=== PATIENT | female | born 1990 | race Caucasian/White ===

== ENCOUNTER 2024-11-10 08:26 | Outpatient (OUT) | payer OTHER, SELFPAY ==
--- OUTSIDE RECORDS SUMMARY | 2024-10-31 09:34 | XMS_ITS | Encounter Summary ---
Author Organization [facility] Address [address] [place] [address] Phone Care Team Providers Care Filling And Stapling Machine Operator Name Role Phone Davidson Jay MD Primary Care Provider [phone] Reason for Referral * CV Imaging (Routine) - Authorized Specialty Diagnoses / Procedures Referred By Christine sosa Referred To Contact Cardiology Diagnoses History of palpitations Essential (primary) hypertension Chest pain, unspecified type Dizziness SOB (shortness of breath) on exertion Procedures Transthoracic Echo Complete CT ECHO TTHRC R-T 2D W/WOM-MODE COMPL SPEC&COLR D Eryn Plascencia MD [address] [place] [address] Phone: tel: fax: Referral ID Status Reason Start Date Expiration Date Visits Requested Visits Authorized [id number] Authorized Perform Procedure 08/10/2024 08/10/2025 1 1 Reason for Visit * CV Imaging (Routine) - Authorized Specialty Diagnoses / Procedures Referred By Christine sosa Referred To Contact Cardiology Diagnoses History of palpitations Essential (primary) hypertension Chest pain, unspecified type Dizziness SOB (shortness of breath) on exertion Procedures Transthoracic Echo Complete CT ECHO TTHRC R-T 2D W/WOM-MODE COMPL SPEC&COLR D Eryn Plascencia MD [address] [place] [address] Phone: tel: fax: Referral ID Status Reason Start Date Expiration Date Visits Requested Visits Authorized [id number] Authorized Perform Procedure 08/10/2024 08/10/2025 1 1 Encounter Details Date Type Department Care Team (Latest Contact Info) Description 10/31/2024 9:34 AM EDT - 10/31/2024 11:59 PM EDT Hospital Encounter [facility] Sarah Mcallister [facility] [place] [address] History of palpitations; Essential (primary) hypertension; Chest pain, unspecified type; Dizziness; SOB (shortness of breath) on exertion Discharge Disposition: Home Social History Tobacco Use Types Packs/Day Years Used Date Smoking Tobacco: Never Smokeless Tobacco: Never Alcohol Use Standard Drinks/Week Comments Yes 0 (1 standard drink = 0.6 oz pur e alcohol) rarely Comments Unknown Sex and Gender Information Value Date Recorded Sex Assigned at Not on file Legal Sex Female 2:33 PM EDT Gender Identity Not on file Sexual Orientation Not on file documented as of this encounter Last Filed Vital Signs Vital Sign Reading Time Taken Comments Blood Pressure 134/82 10/31/2024 9:43 AM EDT Pulse - - Temperature - - Respiratory Rate - - Oxygen Saturation - - Inhaled Oxygen Concentration - - Weight 71.7 kg (158 lb) 10/31/2024 9:43 AM EDT Height 162.6 cm (5' 4 ) 10/31/2024 9:43 AM EDT Body Mass Index 27.12 10/31/2024 9:43 AM EDT documented in this encounter Functional Status * BP Answer Date of Assessment Author 134/82 10/31/2024 9:43 AM EDT Chirag Salcedo, RVT * Communicable Disease Screening Question Answer Date of Assessment Author Do you have any of the follo wing new or worsening symptoms? None of these 10/31/2024 9:34 AM EDT Brianna Ritter documented as of this encounter Medications at Time of Discharge furosemide (Lasix) 20 mg tablet Take 1 tablet (20 mg) by mouth once daily. 07/31/2024 potassium gluconate 600 mg (99 mg) tablet Take 1 tablet by mouth once daily. documented as of this encounter Plan of Treatment Upcoming Encounters Date Type Department Care Team (Late st Contact Info) Description 11/16/2024 9:15 AM EDT Office Visit [facility] [place] [address] Eryn Plascencia MD [address] [facility] [address] [place], [place] [id number] documented as of this encounter Procedures Procedure Name Priority Date/Time Associated Diagnosis Comments TRANSTHORACIC ECHO (TTE) COMPLETE Routine 10/31/2024 10:24 AM EDT History of palpitations Essential (primary) hypertension Chest pain, unspecified type Dizziness SOB (shortness of breath) on exertion documented in this encounter Results * TRANSTHORACIC ECHO (TTE) COMPLETE (10/31/2024 10:24 AM EDT) AV mn grad 2 mmHg SYNGO AV pk shannon 0.97 m/s SYNGO LV Biplane EF 61 % SYNGO LVOT diam 2.22 cm SYNGO Tricuspid annular plane systolic excursion 2.3 cm SYNGO LA vol index A/L 17.0 ml/m2 SYNGO LV EF 65 % SYNGO RV free wall pk S' 14.39 cm/s SYNGO LVIDd 4.39 cm SYNGO AV pk grad 4 mmHg SYNGO LV A4C EF 38.6 SYNGO 10/31/2024 9:44 AM EDT Impressions SYNGO - 11/01/2024 10:28 AM EDT CONCLUSIONS: 1. Left ventricular ejection fraction is normal by visual estimate at 65%. 2. There is no evidence of left ventricular hypertrophy. 3. Normal chamber sizes. 4. No significant valvular heart disease. 5. There is normal right ventricular global systolic function. 6. No comparison study available. Narrative SYNGO - 11/01/2024 10:28 AM EDT [facility] [address] [place] [address], [address], [place], [place] [address] TRANSTHORACIC ECHOCARDIOGRAM REPORT Patient Name: JUAN ANTONIO GOMEZ Reading Physician: [id number] Eryn Plascencia MD, [facility] Study Date: 10/31/2024 Ordering Provider: [id number] ERYN PLASCENCIA MRN/PID: [id number] Fellow: Nurse: Date of /Age: 1201/09/1990 Pony Edger: Kari wolfe RDCS, RVT Gender Assigned at F Additional Staff: : Height: 162.56 cm Admit Date: Weight: 71.67 kg Admission Status: Outpatient BSA / BMI: 1.77 m2 / 27.12 Department Location: [facility] Heart kg/m2 [place] Blood Pressure: 134 /82 mmHg Study Type: TRANSTHORACIC ECHO (TTE) COMPLETE Diagnosis/ICD: Personal history of other specified condition-Z87.898; Essential (primary) hypertension-I10; Chest pain, unspecified-R07.9; Dizziness and giddiness-R42; Shortness of breath-R06.02 Indication: Edeema, Family History of CAD, Thoracic Outlet Syndrome, ADD/ADHD CPT Codes: Echo Complete w Full [id number] Study Detail: The following Echo studies were performed: 2D, M-Mode, Doppler and color flow. Image quality for this study is good. PHYSICIAN INTERPRETATION: Left Ventricle: Left ventricular ejection fraction is normal by visual estimate at 65%. There are no regional wall motion abnormalities. The left ventricular cavity size is normal. There is normal septal and normal posterior left ventricular wall thickness. There is no evidence of left ventricular hypertrophy. Spectral Doppler shows a normal pattern of left ventricular diastolic filling. Left Atrium: The left atrial size is normal. Right Ventricle: The right ventricle is normal in size. There is normal right ventricular global systolic function. Right Atrium: The right atrial size is normal. Aortic Valve: The aortic valve is trileaflet. The peak and mean gradients are 4 mmHg and 2 mmHg, respectively,. There is no evidence of aortic valve regurgitation. Mitral Valve: The mitral valve is normal in structure. There is no evidence of mitral valve regurgitation. Tricuspid Valve: The tricuspid valve is structurally normal. There is trace tricuspid regurgitation. Pulmonic Valve: The pulmonic valve is structurally normal. There is no indication of pulmonic valve regurgitation. Pericardium: No pericardial effusion noted. Aorta: The aortic root is normal. Additional Comments: No comparison study available. Normal chamber sizes. No significant valvular heart disease. CONCLUSIONS: 1. Left ventricular ejection fraction is normal by visual estimate at 65%. 2. There is no evidence of left ventricular hypertrophy. 3. Normal chamber sizes. 4. No significant valvular heart disease. 5. There is normal right ventricular global systolic function. 6. No comparison study available. QUANTITATIVE DATA SUMMARY: 2D MEASUREMENTS: Normal Ranges: Ao Root d: 2.80 cm (2.0-3.7cm) LAs: 2.77 cm (2.7-4.0cm) RVIDd: 2.26 cm (0.9-3.6cm) IVSd: 0.77 cm (0.6-1.1cm) LVPWd: 0.64 cm (0.6-1.1cm) LVIDd: 4.39 cm (3.9-5.9cm) LVIDs: 2.97 cm LV Mass Index: 52.3 g/m2 LVEDV Index: 37.18 ml/m2 LV % FS 32.5 % LEFT ATRIUM: Normal Ranges: LA Vol A4C: 24.3 ml (22+/-6mL/m2) LA Vol A2C: 33.6 ml LA Vol BP: 30.0 ml LA Vol Index A4C: 13.7ml/m2 LA Vol Index A2C: 19.0 ml/m2 LA Vol Index BP: 17.0 ml/m2 LA Vol A4C: 22.6 ml LA Vol A2C: 31.4 ml LA Vol Index BSA: 15.2 ml/m2 LV SYSTOLIC FUNCTION: Normal Ranges: EF-A4C View: 39 % (>=55%) EF-A2C View: 75 % EF-Biplane: 61 % EF-Visual: 65 % LV EF Reported: 65 % LV DIASTOLIC FUNCTION: Normal Ranges: MV e' 0.123 m/s (>8.0) MV lateral e' 0.15 m/s MV medial e' 0.10 m/s AORTIC VALVE: Normal Ranges: AoV Vmax: 0.97 m/s (<=1.7m/s) AoV Peak P.7 mmHg (<20mmHg) AoV Mean P.2 mmHg (1.7-11.5mmHg) AoV VTI: 20.49 cm (18-25cm) LVOT Diameter: 2.22 cm (1.8-2.4cm) AORTIC INSUFFICIENCY: AI Vmax: 3.41 m/s AI Half-time: 347 msec AI Decel Time: 1197 msec AI Decel Rate: 285.22 cm/s2 RIGHT VENTRICLE: RV Basal 2.67 cm RV Mid 1.90 cm RV Major 5.9 cm TAPSE: 22.7 mm RV s' 0.14 m/s TRICUSPID VALVE/RVSP: Normal Ranges: Est. RA Pressure: 3 mmHg IVC Diam: 1.79 cm PULMONIC VALVE: Normal Ranges: RVOT Vmax: 0.74 m/s (0.6-0.9m/s) [id number] Eryn Plascencia MD, [facility] Electronically signed on 11/01/2024 at 10:28:49 AM Final Procedure Note Eryn Plascencia MD - 11/01/[address], [address], [place] [address] TRANSTHORACIC ECHOCARDIOGRAM REPORT Patient Name: JUAN ANTONIO GOMEZ Jovanny Physician: Elayne Cordon [facility] Study Date: 10/31/2024 Ordering Provider: Shoshana PLASCENCIA MRN/PID: [id number] Fellow: Nurse: Date of /Age: 1201/09/1990 Pony Edger: Ministerio wolfe RDISMAEL, RVT Gender Assigned at F Additional Staff: : Height: 162.56 cm Admit Date: Weight: 71.67 kg Admission Status: Outpatient BSA / BMI: 1.77 m2 / 27.12 Department Location: [facility] kg/m2 [place] Blood Pressure: 134 /82 mmHg Study Type: TRANSTHORACIC ECHO (TTE) COMPLETE Diagnosis/ICD: Personal history of other specified condition-Z87.898;Essential (primary) hypertension-I10; Chest pain,unspecified-R07.9; Dizziness and giddiness-R42; Shortness of breath-R06.02 Indication: Edeema, Family History of CAD, Thoracic Outlet Syndrome,ADD/ADHD CPT Codes: Echo Complete w Full Doppler-[id number] Study Detail: The following Echo studies were performed: 2D, M-Mode,Doppler and color flow. Image quality for this study is good. PHYSICIAN INTERPRETATION: Left Ventricle: Left ventricular ejection fraction is normal by visualestimate at 65%. There are no regional wall motion abnormalities. The leftventricular cavity size is normal. There is normal septal and normalposterior left ventricular wall thickness. There is no evidence of leftventricular hypertrophy. Spectral Doppler shows a normal pattern of leftventricular diastolic filling. Left Atrium: The left atrial size is normal. Right Ventricle: The right ventricle is normal in size. There is normalright ventricular global systolic function. Right Atrium: The right atrial size is normal. Aortic Valve: The aortic valve is trileaflet. The peak and mean gradientsare 4 mmHg and 2 mmHg, respectively,. There is no evidence of aortic valveregurgitation. Mitral Valve: The mitral valve is normal in structure. There is noevidence of mitral valve regurgitation. Tricuspid Valve: The tricuspid valve is structurally normal. There istrace tricuspid regurgitation. Pulmonic Valve: The pulmonic valve is structurally normal. There is noindication of pulmonic valve regurgitation. Pericardium: No pericardial effusion noted. Aorta: The aortic root is normal. Additional Comments: No comparison study available. Normal chamber sizes.No significant valvular heart disease. CONCLUSIONS: 1. Left ventricular ejection fraction is normal by visual estimate at65%. 2. There is no evidence of left ventricular hypertrophy. 3. Normal chamber sizes. 4. No significant valvular heart disease. 5. There is normal right ventricular global systolic function. 6. No comparison study available. QUANTITATIVE DATA SUMMARY: 2D MEASUREMENTS: Normal Ranges: Ao Root d: 2.80 cm (2.0-3.7cm) LAs: 2.77 cm (2.7-4.0cm) RVIDd: 2.26 cm (0.9-3.6cm) IVSd: 0.77 cm (0.6-1.1cm) LVPWd: 0.64 cm (0.6-1.1cm) LVIDd: 4.39 cm (3.9-5.9cm) LVIDs: 2.97 cm LV Mass Index: 52.3 g/m2 LVEDV Index: 37.18 ml/m2 LV % FS 32.5 % LEFT ATRIUM: Normal Ranges: LA Vol A4C: 24.3 ml (22+/-6mL/m2) LA Vol A2C: 33.6 ml LA Vol BP: 30.0 ml LA Vol Index A4C: 13.7ml/m2 LA Vol Index A2C: 19.0 ml/m2 LA Vol Index BP: 17.0 ml/m2 LA Vol A4C: 22.6 ml LA Vol A2C: 31.4 ml LA Vol Index BSA: 15.2 ml/m2 LV SYSTOLIC FUNCTION: Normal Ranges: EF-A4C View: 39 % (>=55%) EF-A2C View: 75 % EF-Biplane: 61 % EF-Visual: 65 % LV EF Reported: 65 % LV DIASTOLIC FUNCTION: Normal Ranges: MV e' 0.123 m/s (>8.0) MV lateral e' 0.15 m/s MV medial e' 0.10 m/s AORTIC VALVE: Normal Ranges: AoV Vmax: 0.97 m/s (<=1.7m/s) AoV Peak P.7 mmHg (<20mmHg) AoV Mean P.2 mmHg (1.7-11.5mmHg) AoV VTI: 20.49 cm (18-25cm) LVOT Diameter: 2.22 cm (1.8-2.4cm) AORTIC INSUFFICIENCY: AI Vmax: 3.41 m/s AI Half-time: 347 msec AI Decel Time: 1197 msec AI Decel Rate: 285.22 cm/s2 RIGHT VENTRICLE: RV Basal 2.67 cm RV Mid 1.90 cm RV Major 5.9 cm TAPSE: 22.7 mm RV s' 0.14 m/s TRICUSPID VALVE/RVSP: Normal Ranges: Est. RA Pressure: 3 mmHg IVC Diam: 1.79 cm PULMONIC VALVE: Normal Ranges: RVOT Vmax: 0.74 m/s (0.6-0.9m/s) [id number] Eryn Plascencia MD, [facility] Electronically signed on 11/01/2024 at 10:28:49 AM Final IMPRESSION: CONCLUSIONS: 1. Left ventricular ejection fraction is normal by visual estimate at65%. 2. There is no evidence of left ventricular hypertrophy. 3. Normal chamber sizes. 4. No significant valvular heart disease. 5. There is normal right ventricular global systolic function. 6. No comparison study available. us Eryn Plascencia MD CV ECHO PROCEDURES Final Result SYNGO documented in this encounter Visit Diagnoses Diagnosis History of palpitations Essential (primary) hypertension Unspecified essential hypertension Chest pain, unspecified type Dizziness Dizziness and giddiness SOB (shortness of breath) on exertion Shortness of breath documented in this encounter Additional Health Concerns Assessment Noted Time A fall risk assessment has been complete d for the patient 08/10/2024 11:03 AM EDT documented as of this encounter Care Teams Filling And Stapling Machine Operator Relationship Specialty Start Date End Date Davidson Jay MD [address] [facility] [address] [place] [address] PCP - General Family Medicine 08/02/24 documented as of this encounter
--- OUTSIDE RECORDS SUMMARY | 2024-11-10 08:33 | XMS_ITS | Encounter Summary ---
Author Organization [facility] Address [address] [facility] [place] [address] Care Team Providers Care Civil Service Worker Name Role Phone Davidson Jay MD Primary Care Provider [phone] Encounter Details Date Type Department Care Team (Late Contact Info) Description 09/19/2024 Abstract [facility] Escobedo [address] [facility] 110 [place] [phone] Davidson Jay MD [address] [facility] [address] [place] [address] Social History Tobacco Use Types Packs/Day Years Used Date Smoking Tobacco: Never Smokeless Tobacco: Never Alcohol Use Standard Drinks/Week Comments Not Currently 0 (1 standard drink = 0.6 oz pure alcohol) Caffeine intake : 1-2 cups per day coffee PHQ-2 Answer Date Recorded Patient Health Questionnaire-2 Score 2 08/14/2024 Comments Unknown Sex and Gender Information Value Date Recorded Sex Assigned at Female 10/05/2023 8:53 AM EDT Legal Sex Female 8:27 PM EDT Gender Identity Female 10/05/2023 8:53 AM EDT Sexual Orientation Bisexual 10/05/2023 8: 53 AM EDT documented as of this encounter Plan of Treatment Upcoming Encounters Date Type Department Care Team (Late st Contact Info) Description 12/18/2024 11:00 AM EST Office Visit [facility] Escobedo [address] [facility] [address] [place] [phone] Davidson Jay MD [address] [facility] [address] [place] [address] documented as of this encounter Visit Diagnoses Not on filedocumented in this encounter Care Teams Civil Service Worker Relationship Specialty Start Date End Date Davidson Jay MD [address] [place] [address] PCP - General Family Medicine 06/16/22 documented as of this encounter
--- OUTSIDE RECORDS SUMMARY | 2024-11-10 08:33 | XMS_ITS | Clinical Summary ---
Author Organization [employer] Address [id number] [address] [place] [address] Care Team Providers Care Health Spa Manager Name Role Phone Davidson Jay MD Primary Care Provider [phone] Allergies Active Allergy Reactions Criticality Noted Date Comments Magnesium Sulfate 01/05/2018 Medications citalopram (CeleXA) 20 mg tablet Take 1 tablet by mouth daily. 2 04/08/2018 Active Active Problems Problem Noted Date Diagnosed Date Heart palpitations Lightheadedness Chest pain Dyspnea on exertion SOB (shortness of breath) Back pain Restless sleeper Preeclampsia Family History Medical History Relation Name Comments Heart disease Maternal Grandfather Hypertension Maternal Grandmother Stroke Maternal Grandmother COPD Mother Hypertension Paternal Grandfather Lung cancer Paternal Grandfather Hypertension Paternal Grandmother Relation Name Status Comments Maternal Grandfather Maternal Grandmother Mother Paternal Grandfather Paternal Grandmother Social History Tobacco Use Types Packs/Day Years Used Date Smoking Tobacco: Never Smokeless Tobacco: Never Tobacco Cessation:Counseling Given: Yes Alcohol Use Standard Drinks/Week Comments Yes 0 (1 standard drink = 0.6 oz pur e alcohol) occasional Childcare Answer Date Recorded Childcare Unknown 07/21/2018 Employment Answer Date Recorded Employment Unknown 07/21/2018 Purpose - Life Answer Date Recorded Purpose and direction in life Unknown Comments Unknown Sex and Gender Information Value Date Recorded Sex Assigned at Not on file Legal Sex Female 11:49 AM EST Gender Identity Not on file Sexual Orientation Not on file Last Filed Vital Signs Vital Sign Reading Time Taken Comments Blood Pressure 117/75 09/15/2018 9:45 AM EDT Pulse 101 09/15/2018 9:45 AM EDT Temperature 36.3 C (97.4 F) 01/13/2018 2:38 PM EST Respiratory Rate 14 01/13/2018 2:38 PM EST Oxygen Saturation - - Inhaled Oxygen Concentration - - Weight 65.8 kg (145 lb) 09/15/2018 9:45 AM EDT Height 162.6 cm (5' 4 ) 09/15/2018 9:45 AM EDT Body Mass Index 24.89 09/15/2018 9:45 AM EDT Plan of Treatment Health Maintenance Due Date Last Done Comments Depression Screening 2003 Tobacco Screening 2003 Adult BMI Screening 2009 DTaP,Tdap and Td Vaccines (1 - Tdap) 2010 Pap Smear 01/10/2012 Influenza Vaccine 10/09/2024 01/12/2019 Medical Devices Not on file Insurance [employer] Care Teams Health Spa Manager Relationship Specialty Start Date End Date Dvaidson Jay MD [address] [place] [id number] PCP - General Family Medicine 01/06/18
--- OUTSIDE RECORDS SUMMARY | 2024-11-10 08:33 | XMS_ITS | Encounter Summary ---
Author Organization [facility] Address [address] [facility] [place] [address] Care Team Providers Care Customer Trainer Name Role Phone Davidson Jay MD Primary Care Provider [phone] Encounter Details Date Type Department Care Team (Late Contact Info) Description 09/19/2024 Abstract [facility] Escobedo [address] [facility] [address] [place] [phone] Davidson Jay MD [address] [facility] [address] [place] [address] Social History Tobacco Use Types Packs/Day Years [...] Office Visit [facility] K[facility] Escobedo [address] [facility] [address] [place] [phone] Davidson Jay MD [address] [facility] [address] [place] [address] documented as of this encounter Visit Diagnoses Not on filedocumented in this encounter Care Teams Customer Trainer Relationship Specialty Start Date End Date Davidson Jay MD 112 [place] [address] PCP - General Family Medicine 06/16/22 documented as of this encounter
--- OUTSIDE RECORDS SUMMARY | 2024-11-10 08:33 | XMS_ITS | Clinical Summary ---
Author Organization [facility] Healthcare Address [address] [place] [address] Care Team Providers Care Oil Program Compliance Specialist Name Role Phone Davidson Jay MD Primary Care Provider [phone] Allergies Active Allergy Reactions Criticality Noted Date Comments Magnesium Sulfate 01/05/2018 Medications clonazePAM (KlonoPIN) 0.5 MG tabletIndications: Current severe episode of major depressive disorder without psychotic features without prior episode (HCC) Take 1 tablet (0.5 mg) by mouth in the morning and 1 tablet (0.5 mg) before bedtime. 60 tablet 5 Active furosemide (Lasix) 20 MG tabletIndications: Edema of both feet TAKE 1 TABLET BY MOUTH EVERY DAY 30 tablet 3 5 Active labetalol (Normodyne) 100 MG tabletIndications: Primary hypertension Take 1 tablet (100 mg) by mouth in the morning and 1 tablet (100 mg) before bedtime. 180 tablet 1 5 Active atomoxetine (Strattera) 18 MG capsuleIndications :Attention deficit hyperactivity disorder, predominantly inattentive type Take 1 capsule (18 mg) by mouth Daily Do not open capsule 90 capsule 1 5 Active Potassium Gluconate 595 (99 K) MG tablet Take 1 tablet by mouth in the morning. Active Active Problems Problem Noted Date Diagnosed Date BMI 27.0-27.9,adult 08/10/2024 Encounter to establish care 08/10/2024 History of palpitations 08/10/2024 Hx of migraines 08/10/2024 Intermittent claudication 08/10/2024 Left arm weakness 08/10/2024 Never smoked tobacco 08/10/2024 Edema of both feet 04/24/2024 Assessment & Plan (07/20/2024 3:10 PM EDT): Resolved Does do Lasix Add once a day MVI Thoracic outlet syndrome 02/17/2024 Assessment & Plan (08/14/2024 10:23 AM EDT): Has CT scan EKG and Echo And Stress Test Saw Cardiology History of gestational hypertension 02/17/2024 Gall bladder polyp 01/25/2024 Assessment & Plan (01/25/2024 10:12 AM EST): Consider General surgeon Elevated blood pressure reading 01/25/2024 Assessment & Plan (08/14/2024 10:15 AM EDT): Our specific goals, for your hypertension, is to keep your blood pressure less than 140/90, and the importance of weight control. We made recommendations on how to control your blood pressure, and minimize your risk of these copmplications. We also discussed your current barriers to a healthy living and importance of healthy diet and exercise. Prior to your visit today we have reviewed your chart and formed a plan to assist with providing you the best possible care. We reviewed the possible complications of hypertension including, stroke, heart failure and kidney impairment. In addition, we discussed your medications, the importance of taking them as prescribed. DASH diet handouts Assessment & Plan (01/25/2024 10:18 AM EST): Our specific goals, for your hypertension, is to keep your blood pressure less than 140/90, and the importance of weight control. We made recommendations on how to control your blood pressure, and minimize your risk of these copmplications. We also discussed your current barriers to a healthy living and importance of healthy diet and exercise. Prior to your visit today we have reviewed your chart and formed a plan to assist with providing you the best possible care. We reviewed the possible complications of hypertension including, stroke, heart failure and kidney impairment. In addition, we discussed your medications, the importance of taking them as prescribed. DASH diet handouts Right upper quadrant abdominal pain 01/11/2024 Dyskinesia of gallbladder 01/11/2024 Periumbilical abdominal pain 01/11/2024 Impaired fasting glucose 11/03/2023 Irregular menses 10/12/2023 Frequent infections 09/06/2023 Assessment & Plan (09/06/2023 2:09 PM EDT): Add Protein Zinc, Vitamin C and D Strain of lumbar region 02/11/2023 Assessment & Plan (02/11/2023 3:57 PM EST): Stretching Motrin 600mg-800mg every 8hours PT or Massage Heat Core exercise Also weight loss Arthralgia of knee 12/01/2022 Assessment & Plan (12/01/2022 4:08 PM EDT): Improved Weight gain due to medication 12/01/2022 Assessment & Plan (12/01/2022 4:31 PM EDT): Do every other day of the paxil and then can stop Then watch for any dizziness Exercise and Diet Grandmother had DM D/W patient possible insulin ressistance as cause of weight gain Consider Metformin and Accucheck machine Elevated liver function tests 12/01/2022 Anxiety disorder, unspecified 11/05/2022 Attention deficit hyperactiv ity disorder, predominantly inattentive type 11/05/2022 Assessment & Plan (07/20/2024 3:09 PM EDT): Our specific goals, for your hypertension, is to keep your blood pressure less than 140/90, and the importance of weight control. We made recommendations on how to control your blood pressure, and minimize your risk of these copmplications. We also discussed your current barriers to a healthy living and importance of healthy diet and exercise. Prior to your visit today we have reviewed your chart and formed a plan to assist with providing you the best possible care. We reviewed the possible complications of hypertension including, stroke, heart failure and kidney impairment. In addition, we discussed your medications, the importance of taking them as prescribed. DASH diet handouts Back pain 11/05/2022 Chronic sinusitis 11/05/2022 Dysmenorrhea 11/05/2022 Dyspareunia in female 11/05/2022 Dyspnea on exertion 11/05/2022 Elbow pain, right 11/05/2022 Gastritis 11/05/2022 Globus sensation 11/05/2022 Heart palpitations 11/05/2022 Assessment & Plan (08/14/2024 10:22 AM EDT): HR is lower Consider Carvedilol Did see Salon/Spa Manager Assessment & Plan (01/25/2024 10:19 AM EST): Consider cardizem Assessment & Plan (01/11/2024 3:06 PM EST): When took Propranolol when light sensitivity and preeclampsia was bad. Has had multiple HOLTER Consider referral cardiology Hypnic jerks 11/05/2022 Irritable bowel syndrome 11/05/2022 Assessment & Plan (01/11/2024 3:00 PM EST): Has had a long time Lesion of ulnar nerve 11/05/2022 Dizziness 11/05/2022 Major depressive disorder, single episode, unspe cified 11/05/2022 Assessment & Plan (10/12/2023 1:50 PM EDT): Genesight testing Counseling not found a good fit Migraine without aura, intractable 11/05/2022 Neuropathy of right peroneal nerve 11/05/2022 Panic disorder 11/05/2022 Postcoital bleeding 11/05/2022 Preeclampsia ([facility]) 11/05/2022 PMDD (premenstrual dysphoric disorder) Restless sleeper 11/05/2022 Right foot pain 11/05/2022 Skin sensation disturbance 11/05/2022 Unspecified maternal hyperte nsion, unspecified trimester ([facility]) 11/05/2022 Encounters Date Type Department Care Team Description 10/31/2024 Clinisync Result Encounter [facility] External Department Unsolicited Provider, Generic External Data 09/19/2024 [facility] [address] [place] [address] [place] [address] Davidson Jay MD 09/19/2024 Results [facility] [address] [place] [address] [place] [address] Evonne Hunt PA URINARY TRACT INFECTION (HTRX) 09/19/2024 [facility] [address] [facility] [address] [place] [address] Davidson Jay MD 09/18/2024 11:30 AM EDT [facility] [address] [facility] [address] [place] [address] Evonne Hunt PA Acute cystitis with hematuria (Primary Dx); Dysuria 09/18/2024 External Result Encounter [facility] External Department Unsolicited Evonne Hunt PA 09/18/2024 Bamboo flowsheet [facility] [address] [facility] [address] [place] [address] Evonne Hunt PA 09/18/2024 Travel 08/16/2024 Clinisync Result Encounter [facility] External Department Unsolicited Provider, Generic External Data 08/14/2024 10:00 AM EDT [facility] [address] [facility] [address] [place] [address] Davidson Jay MD Elevated blood pressure reading (Primary Dx); Heart palpitations; Thoracic outlet syndrome 08/14/2024 Bamboo flowsheet [facility] [address] [facility] [address] [place] [address] Davidson Jay MD 08/14/2024 Travel 08/12/2024 Refill [facility] [address] [facility] [address] [place] [address] Davidson Jay MD Primary hypertension ; Attention deficit hyperactivity disorder, predominantly inattentive type from Last 3 Months Immunizations Immunization Administration Dates Next Due Influenza, injectable, MDCK, quadrivalent 2018 Influenza, injectable, quadrivalent, preservativ e free 11/23/2017 Influenza, intradermal, quadrivalent, preservati ve free 03/18/2017 Family History Medical History Relation Name Comments Car accident Father Hypertension Mother Breast cancer Mother's Sister Ovarian cancer Mother's Sister Relation Name Status Comments Brother 3 brothers Father Mother Alive Mother's Sister Alive half sister Sister 3 sisters Social History Tobacco Use Types Packs/Day Years Used Date Smoking Tobacco: Never Smokeless Tobacco: Never Tobacco Cessation:Counseling Given: Yes Alcohol Use Standard Drinks/Week Comments Not Currently [...] Orientation Bisexual 10/05/2023 8: 53 AM EDT Last Filed Vital Signs Vital Sign Reading Time Taken Comments Blood Pressure 126/84 09/18/2024 11:38 AM EDT Pulse 84 09/18/2024 11:38 AM EDT Temperature 37.1 C (98.8 F) 02/23/2024 4:56 PM EST Respiratory Rate 16 09/18/2024 11:38 AM EDT Oxygen Saturation 99% 09/18/2024 11:38 AM EDT Inhaled Oxygen Concentration - - Weight 72.4 kg (159 lb 9.6 oz) 09/18/2024 11:38 AM EDT Height 162.6 cm (5' 4 ) 09/18/2024 11:38 AM EDT Body Mass Index 27.4 09/18/2024 11:38 AM EDT Plan of Treatment Upcoming Encounters Date Type Department Care Team (Late st Contact Info) Description 12/18/2024 11:00 AM EST Office Visit [facility] [address] [facility] [address] [place] [address] Davidson Jay MD [address] [facility] [address] [place] [address] Health Maintenance Due Date Last Done Comments HPV/Cotest 2021 Cervical Cancer Screening 02/25/2024 Pap Smear 02/25/2024 02/24/2021 Influenza Vaccine (#1) 2024 01/24/2019, 2017, 03/18/2017 Procedures Procedure Name Priority Date/Time Associated Diagnosis Comments TRANSTHORACIC ECHO (TTE) COMPLETE 10/31/2024 9:44 AM EDT POCT URINALYSIS DIPSTICK Routine 09/18/2024 11:41 AM EDT Dysuria URINARY TRACT INFECTION (HTRX) Routine 09/18/2024 12:00 AM EDT STRESS TEST ONLY 08/16/2024 3:09 PM EDT THINPREP TIS PAP AND HPV MRNA E6/E7 REFLEX HPV 16,18/45 (03062) Routine 02/24/2021 from Last 3 Months or Most Recently Relevant to Health Maintenance Results * Transthoracic echo (TTE) complete (10/31/2024 9:44 AM EDT) Anatomical Region Laterality Modality Ultrasound 10/31/2024 9:44 AM EDT Narrative 11/01/2024 10:28 AM EDT [address], [place] [address] TRANSTHORACIC ECHOCARDIOGRAM REPORT Patient Name: JUAN ANTONIO GOMEZ Jovanny Physician: [id number] Plascencia MD, [facility] Study Date: 10/31/2024 Ordering Provider: [id number] KING PLASCENCIA MRN/PID: [id number] Fellow: Nurse: Date of /Age: 1201/09/1990 County Records Management Officer: Kari wolfe RDCS, RVT Gender Assigned at F Additional Staff: : Height: 162.56 cm Admit Date: Weight: 71.67 kg Admission Status: Outpatient BSA / BMI: 1.77 m2 / 27.12 Department Location: [facility] kg/m2 [place] Blood Pressure: 134 /82 mmHg Study Type: TRANSTHORACIC ECHO (TTE) COMPLETE Diagnosis/ICD: Personal history of other specified condition-Z87.898; Essential (primary) hypertension-I10; Chest pain, unspecified-R07.9; Dizziness and giddiness-R42; Shortness of breath-R06.02 Indication: Edeema, Family History of CAD, Thoracic Outlet Syndrome, ADD/ADHD CPT Codes: Echo Complete w Full Doppler-[id number] Study Detail: The following Echo studies were [...] Normal Ranges: RVOT Vmax: 0.74 m/s (0.6-0.9m/s) [id number] King Plascencia MD, FACC Electronically signed on 11/01/2024 at 10:28:49 AM Final CONCLUSIONS: 1. Left ventricular ejection fraction is normal by visual estimate at 65%. 2. There is no evidence of left ventricular hypertrophy. 3. Normal chamber sizes. 4. No significant valvular heart disease. 5. There is normal right ventricular global systolic function. 6. No comparison study available. Procedure Note Radiology, Radiologist, - 11/01/2024 [facility] [address], [address], [place] [address] TRANSTHORACIC ECHOCARDIOGRAM REPORT Patient Name: JUAN ANTONIO GOMEZ Reading Physician: Elayne PlascenciaSD, [facility] Study Date: 10/31/2024 Ordering Provider: Shoshana PLASCENCIA MRN/PID: [id number] Fellow: Nurse: Date of /Age: 1201/09/1990 County Records Management Officer: Ministerio wolfe RDCS, RVT Gender Assigned at F Additional Staff: : Height: 162.56 cm Admit Date: Weight: 71.67 kg Admission Status: Outpatient BSA / BMI: 1.77 m2 / 27.12 Department Location: [facility] kg/m2 [place] Blood Pressure: 134 /82 mmHg Study Type: TRANSTHORACIC ECHO (TTE) COMPLETE Diagnosis/ICD: Personal history of other specified condition-Z87.898;Essential (primary) hypertension-I10; Chest pain,unspecified-R07.9; Dizziness and giddiness-R42; Shortness of breath-R06.02 Indication: Edeema, Family History of CAD, Thoracic Outlet Syndrome,ADD/ADHD CPT Codes: Echo Complete w Full Doppler-[id number] Study Detail: The following Echo studies were [...] Normal Ranges: RVOT Vmax: 0.74 m/s (0.6-0.9m/s) [id number] King Plascencia MD, FACC Electronically signed on 11/01/2024 at 10:28:49 AM Final CONCLUSIONS: 1. Left ventricular ejection fraction is normal by visual estimate at65%. 2. There is no evidence of left ventricular hypertrophy. 3. Normal chamber sizes. 4. No significant valvular heart disease. 5. There is normal right ventricular global systolic function. 6. No comparison study available. Generic External Data Provider CV ECHO PROCEDURE S Final Result * (ABNORMAL) POCT Urinalysis dipstick (09/18/2024 11:41 AM EDT) Color, UA Light Yellow Clarity, UA Clear Glucose, UA Negative Negative - 2000(110) ++++ mg/dL Bilirubin, UA Negative Negative - 4(70) +++ mg/dL Ketones, UA Negative Negative - 160(16) ++++ mg/dL Spec Grav, UA 1.005 1 - 1.03 Blood, UA Positive Negative - 50 Roc/mcL Comment:moderate pH, UA 8.5 5 - 9 Protein, UA 3+ Negative - 2000(20) ++++ mg/dL Urobilinogen, UA 1.0 0.2 - 12 mg/dL Leukocytes, UA Moderate Negative - 500+++ David/mcL Nitrite, UA Negative Negative - Positive Urine 09/18/2024 11:4 1 AM EDT Evonne THOMPSON POINT OF CARE TEST ENTER/EDIT ORDERABLES Final Result * URINARY TRACT INFECTION (HTRX) (09/18/2024 12:00 AM EDT) [facility] ACINETOBACTER BAUMANII 0 19.961 - 24.689 ppm 09/19/2024 11:07 AM EDT [facility] ACINETOBACTER BAUMANII Not Detected 19.961 - 24.689 ppm 09/19/2024 11:07 AM EDT [facility] CITROBACTER FREUNDII 0 23.000 - 32.015 ppm 09/19/2024 11:07 AM EDT [facility] CITROBACTER FREUNDII Not Detected 23.000 - 32.015 ppm 09/19/2024 11:07 AM EDT [facility] ENTEROBACTER AEROGENES, CLOACAE 0 23.000 - 32.290 ppm 09/19/2024 11:07 AM EDT [facility] ENTEROBACTER AEROGENES, CLOACAE Not Detected 23.000 - 32.290 ppm 09/19/2024 11:07 AM EDT [facility] ENTEROCOCCUS FAECALIS, FAECIUM 0 26.000 - 33.043 ppm 09/19/2024 11:07 AM EDT [facility] ENTEROCOCCUS FAECALIS, FAECIUM Not Detected 26.000 - 33.043 ppm 09/19/2024 11:07 AM EDT [facility] ESCHERICHIA COLI 0 23.000 - 28.500 ppm 09/19/2024 11:07 AM EDT [facility] ESCHERICHIA COLI Not Detected 23.000 - 28.500 ppm 09/19/2024 11:07 AM EDT [facility] KLEBSIELLA PNEUMONIAE, OXYTOCA 0 23.000 - 31.865 ppm 09/19/2024 11:07 AM EDT [facility] KLEBSIELLA PNEUMONIAE, OXYTOCA Not Detected 23.000 - 31.865 ppm 09/19/2024 11:07 AM EDT [facility] MORGANELLA MORGANII 0 19.961 - 24.689 ppm 09/19/2024 11:07 AM EDT [facility] MORGANELLA MORGANII Not Detected 19.961 - 24.689 ppm 09/19/2024 11:07 AM EDT [facility] PROTEUS MIRABILIS, VULGARIS 0 23.000 - 28.500 ppm 09/19/2024 11:07 AM EDT [facility] PROTEUS MIRABILIS, VULGARIS Not Detected 23.000 - 28.500 ppm 09/19/2024 11:07 AM EDT [facility] PSEUDOMONAS AERUGINOSA 0 23.000 - 31.801 ppm 09/19/2024 11:07 AM EDT [facility] PSEUDOMONAS AERUGINOSA Not Detected 23.000 - 31.801 ppm 09/19/2024 11:07 AM EDT [facility] STAPHYLOCOCCUS AUREUS 0 26.000 - 31.595 ppm 09/19/2024 11:07 AM EDT [facility] STAPHYLOCOCCUS AUREUS Not Detected 26.000 - 31.595 ppm 09/19/2024 11:07 AM EDT [facility] STREPTOCOCCUS AGALACTIAE (GROUP B STREP) 0 26.000 - 32.435 ppm 09/19/2024 11:07 AM EDT [facility] STREPTOCOCCUS AGALACTIAE (GROUP B STREP) Not Detected 26.000 - 32.435 ppm 09/19/2024 11:07 AM EDT [facility] JAMAR ALBICANS, PARAPSILOSIS, TROPICALIS 0 23.000 - 30.347 ppm 09/19/2024 11:07 AM EDT [facility] JAMAR ALBICANS, PARAPSILOSIS, TROPICALIS Not Detected 23.000 - 30.347 ppm 09/19/2024 11:07 AM EDT [facility] JAMAR GLABRATA 0 23.000 - 31.618 ppm 09/19/2024 11:07 AM EDT [facility] JAMAR GLABRATA Not Detected 23.000 - 31.618 ppm 09/19/2024 11:07 AM EDT [facility] JAMAR KRUSEI 0 23.000 - 30.873 ppm 09/19/2024 11:07 AM EDT [facility] JAMAR KRUSEI Not Detected 23.000 - 30.873 ppm 09/19/2024 11:07 AM EDT [facility] SERRATIA MARCESCENS 0 23.000 - 31.581 ppm 09/19/2024 11:07 AM EDT [facility] SERRATIA MARCESCENS Not Detected 23.000 - 31.581 ppm 09/19/2024 11:07 AM EDT [facility] STREPTOCOCCUS PYOGENES (GROUP A STREP) 0 19.961 - 24.689 ppm 09/19/2024 11:07 AM EDT [facility] STREPTOCOCCUS PYOGENES (GROUP A STREP) Not Detected 19.961 - 24.689 ppm 09/19/2024 11:07 AM EDT [facility] STAPHYLOCOCCUS EPIDERMIDIS, HAEMOLYTICUS, LUGDUNENSIS, SAPROPHYTICUS (URINA 0 19.961 - 24.689 ppm 09/19/2024 11:07 AM EDT [facility] STAPHYLOCOCCUS EPIDERMIDIS, HAEMOLYTICUS, LUGDUNENSIS, SAPROPHYTICUS (URINA Not Detected 19.961 - 24.689 ppm 09/19/2024 11:07 AM EDT [facility] STAPHYLOCOCCUS EPIDERMIDIS, HAEMOLYTICUS, LUGDUNENSIS, SAPROPHYTICUS (URINA 0 19.961 - 24.689 ppm 09/19/2024 11:07 AM EDT [facility] STAPHYLOCOCCUS EPIDERMIDIS, HAEMOLYTICUS, LUGDUNENSIS, SAPROPHYTICUS (URINA Not Detected 19.961 - 24.689 ppm 09/19/2024 11:07 AM EDT [facility] Urine 09/18/2024 09/19/2024 4:5 7 AM EDT us Evonne THOMPSON LAB BLOOD ORDERABLES Final Res ult [facility] [address] [address] * Stress test (08/16/2024 3:09 PM EDT) Anatomical Region Laterality Modality Heart Other 08/16/2024 3:09 PM EDT Narrative 08/17/2024 5:01 PM EDT [address], [address] [place] [address] Exercise Stress Test Patient Name: JUAN ANTONIO GOMEZ Ordering Provider: [id number] KING PLASCENCIA Study Date: 08/16/2024 Reading Physician: [id number] Harris MD MRN/PID: [id number] Supervising Physician: [id number] Harris MD Fellow: Date of /Age: 1201/09/1990 / 34 years Fellow: Gender: F Nurse: Onur Santos RN Admission Status: County Records Management Officer: SHERLY Height: 162.56 cm Technologist: Weight: 71.67 kg Additional Staff: BSA: 1.77 m2 BMI: 27.12 kg/m2 Patient Location: Study Type: STRESS TEST ONLY Diagnosis/ICD: Chest pain, unspecified-R07.9 Indication: Chest Pain CPT Codes: Stress Test Interpretation-97254; Stress Test Supervision-[id number] Falls Risk: Low: Patient has low risk for sustaining a fall; environmental safety interventions in place. Study Details: Correct procedure and correct patient verified verbally. Patient Performance: The patient exercised to stage III on a Ranjit protocol for 9 minutes and 00 seconds, achieving 10.10 METS. The peak heart rate achieved was 171 bpm, which was 92 % of the age predicted target heart rate of 186 bpm. The resting blood pressure was 132/86 mmHg with a heart rate of 92 bpm. The standing blood pressure was 126/78 mmHg with a heart rate of 101 bpm. The patient's functional capacity was average. The patient developed fatigue during the stress exam. The symptoms resolved with rest. The blood pressure response was normal. The test was terminated due to: fatigue. Double Product (HR x BP): 277. Baseline ECG: Resting ECG showed normal sinus rhythm with frequent premature ventricular contractions. Stress Stage Data: + +---+------+-------+ HR Sys BP Knight BP + +---+------+-------+ Baseline Resting 92 132 86 + +---+------+-------+ Baseline Standing 101 126 78 + +---+------+-------+ Stage I 129 138 78 + +---+------+-------+ Stage II 153 148 76 + +---+------+-------+ Stage III 171 162 76 + +---+------+-------+ Recovery ECG: The heart rate recovery was normal. + +---+------+-------+ HR Sys BP Knight BP + +---+------+-------+ Recovery I 171 164 72 + +---+------+-------+ Recovery II 166 164 74 + +---+------+-------+ Recovery III 129 146 84 + +---+------+-------+ Recovery IV 116 132 86 + +---+------+-------+ Summary: 1. Graded exercise stress test with nondiagnostic ST-T changes for ischemia. 2. No provoked chest pain or arrhythmia. 3. Appropriate hemodynamic response to exercise. 4. Fair exercise tolerance. 5. Normal heart rate recovery phase. 6. Patient exercised for a total of 9 minutes achieving 91% of maximum predicted heart rate and workload of 10.1 METS. 7. Adequate level of stress achieved. [id number] Vickie Harris MD Electronically signed on 08/17/2024 at 5:01:43 PM Final Procedure Note Radiology, Radiologist, - 08/17/[address], [place] [address] Exercise Stress Test Patient Name: JUAN ANTONIO GOMEZ [id number] Study Date: 08/16/2024 Reading Physician: [id number] Julio MRN/PID: [id number] Supervising Physician: [id number] Julio Fellow: Date of /Age: 1201/09/1990 / 34 years Fellow: Gender: F Nurse: Cici BAH Admission Status: County Records Management Officer: SHERLY Height: 162.56 cm Technologist: Weight: 71.67 kg Additional Staff: BSA: 1.77 m2 BMI: 27.12 kg/m2 Patient Location: Study Type: STRESS TEST ONLY Diagnosis/ICD: Chest pain, unspecified-R07.9 Indication: Chest Pain CPT Codes: Stress Test Interpretation-16165; Stress TestSupervision-[id number] Falls Risk: Low: Patient has low risk for sustaining a fall; environmentalsafety interventions in place. Study Details: Correct procedure and correct patient verified verbally. Patient Performance: The patient exercised to stage III on a Bruceprotocol for 9 minutes and 00 seconds, achieving 10.10 METS. The peakheart rate achieved was 171 bpm, which was 92 % of the age predictedtarget heart rate of 186 bpm. The resting blood pressure was 132/86 mmHgwith a heart rate of 92 bpm. The standing blood pressure was 126/78 mmHgwith a heart rate of 101 bpm. The patient's functional capacity wasaverage. The patient developed fatigue during the stress exam. Thesymptoms resolved with rest. The blood pressure response was normal. Thetest was terminated due to: fatigue. Double Product (HR x BP): 277. Baseline ECG: Resting ECG showed normal sinus rhythm with frequentpremature ventricular contractions. Stress Stage Data: + +---+------+-------+ HR Sys BP Knight BP + +---+------+-------+ Baseline Resting 92 132 86 + +---+------+-------+ Baseline Standing 101 126 78 + +---+------+-------+ Stage I 129 138 78 + +---+------+-------+ Stage II 153 148 76 + +---+------+-------+ Stage III 171 162 76 + +---+------+-------+ Recovery ECG: The heart rate recovery was normal. + +---+------+-------+ HR Sys BP Knight BP + +---+------+-------+ Recovery I 171 164 72 + +---+------+-------+ Recovery II 166 164 74 + +---+------+-------+ Recovery III 129 146 84 + +---+------+-------+ Recovery IV 116 132 86 + +---+------+-------+ Summary: 1. Graded exercise stress test with nondiagnostic ST-T changes forischemia. 2. No provoked chest pain or arrhythmia. 3. Appropriate hemodynamic response to exercise. 4. Fair exercise tolerance. 5. Normal heart rate recovery phase. 6. Patient exercised for a total of 9 minutes achieving 91% of maximumpredicted heart rate and workload of 10.1 METS. 7. Adequate level of stress achieved. [id number] Vickie Harris MD Electronically signed on 08/17/2024 at 5:01:43 PM Final Generic External Data Provider CV STRESS PROCEDU RES Final Result * THINPREP TIS PAP AND HPV MRNA E6/E7 REFLEX HPV 16,18/45 ([id number]) (02/24/2021) CLINICAL INFORMATION: None given [facility] LMP: 02/01/21 [facility] PREV. PAP: N/A [facility] PRE[facility]. BX: N/A [facility] SOURCE: Cervix [facility] STATEMENT OF ADEQUACY: SEE COMMENT [facility] Comment: Satisfactory for evaluation. Endocervical/transformation zone component present. INTERPRETATION/RE SULT: Negative for intraepithelial lesion or malignancy. [facility] COMMENT: This Pap test has been evaluated with computer assisted technology. [facility] CAUL FAT PULLER: SEE COMMENT [facility] Comment: NNO, CT(ASCP) CT screening location: [facility], [address] [place] [address]. COMMENT SEE COMMENT [facility] Comment: EXPLANATORY NOTE: The Pap is a screening test for cervical cancer. It is not a diagnostic test and is subject to false negative and false positive results. It is most reliable when a satisfactory sample, regularly obtained, is submitted with relevant clinical findings and history, and when the Pap result is evaluated along with historic and current clinical information. HPV MRNA E6/E7 Not Detected Not Detected [facility] Comment: Methodology: Inspector And Unloader-Mediated Amplification This assay detects E6/E7 viral messenger RNA (mRNA) from 14 high-risk HPV types (16,18,31,33,35,39,45,51,52,56,58,59,66,68). The analytical performance characteristics of this assay have been determined by [employer]. The modifications have not been cleared or approved by the FDA. This assay has been validated pursuant to the CLIA regulations and is used for clinical purposes. For additional information, please refer to http://education.[employer].Sanswire/faq/VKP382n8 (This link if provided for information/ educational purposes only.) 02/24/2021 Juan J Vargas MD [facility] Final Result Performing Organization Address City/State/[facility] Co de Phone Number [facility] from Last 3 Months or Most Recently Relevant to Health Maintenance Insurance [facility] Care Teams Oil Program Compliance Specialist Relationship Specialty Start Date End Date Davidson Jay MD [address] [place] [address] PCP - General Family Medicine 06/16/22
--- OUTSIDE RECORDS SUMMARY | 2024-11-10 08:33 | XMS_ITS | Encounter Summary ---
Author Organization [facility] Address [address] [place] [address] Care Team Providers Care Gin Operator Name Role Phone Davidson Jay MD Primary Care Provider Encounter Details Date Type Department Care Team ([facility] Contact Info) Description 11/11/2022 Abstract [facility] Kendra Escobedo 112 [facility] 110 [place] [phone] Davidson Jay MD 112 [facility] 110 [place] [address] Social History Tobacco Use Types Packs/Day Years Used Date Smoking Tobacco: Never Smokeless Tobacco: Never Alcohol Use Standard Drinks/Week Comments Not Currently 0 (1 standard drink = 0.6 oz pure alcohol) Caffeine intake : 1-2 cups per day coffee Comments Unknown Sex and Gender Information Value Date Recorded Sex Assigned at Female 10/05/2023 8:53 AM EDT Legal Sex Female 8:27 PM EDT Gender Identity Female 10/05/2023 8:53 AM EDT Sexual Orientation Bisexual 10/05/2023 8: 53 AM EDT documented as of this encounter Plan of Treatment Upcoming Encounters Date Type Department Care Team ([facility] Contact Info) Description 12/18/2024 11:00 AM EST [facility] 112 [facility] 110 [place] [phone] Davidson Jay MD 112 [facility] 110 [place] [address] documented as of this encounter Visit Diagnoses Not on filedocumented in this encounter Care Teams Gin Operator Relationship Specialty Start Date End Date Davidson Jay MD 112 [place] [address] PCP - General Family Medicine 06/16/22 documented as of this encounter
--- OUTSIDE RECORDS SUMMARY | 2024-11-10 08:33 | XMS_ITS | Encounter Summary ---
Author Organization [facility] Address [address] [place] [address] Care Team Providers Care Casting Associate Name Role Phone Davidson Jay MD Primary Care Provider [phone] Encounter Details Date Type Department Care Team (Late Contact Info) Description 10/31/2024 Clinisync Result Encounter [facility] External Department Unsolicited Provider, Generic External Data Social History Tobacco Use Types Packs/Day Years [...] 11:00 AM EST Office Visit [facility] [address] [place] [address] [place] [address] Davidson Jay MD [address] [facility] 110 [place] [address] documented as of this encounter Procedures Procedure Name Priority Date/Time Associated Diagnosis Comments TRANSTHORACIC ECHO (TTE) COMPLETE 10/31/2024 9:44 AM EDT documented in this encounter Results * Transthoracic echo (TTE) complete (10/31/2024 9:44 AM EDT) Anatomical Region Laterality Modality Ultrasound 10/31/2024 9:44 AM EDT Narrative 11/01/2024 10:28 AM EDT [facility] [address] [place] [address], [address], [place] [address] TRANSTHORACIC ECHOCARDIOGRAM REPORT Patient Name: JUAN ANTONIO GOMEZ [place] Physician: [id number] Plascencia MD, [facility] Study Date: 10/31/2024 Ordering Provider: Shoshana PLASCENCIA MRN/PID: [id number] Fellow: Nurse: Date of /Age: 1201/09/1990 Dermatologist Managing Partner: Kari wolfe RD, T Gender Assigned at F Additional Staff: : Height: 162.56 cm Admit Date: Weight: 71.67 kg Admission Status: Outpatient BSA / BMI: 1.77 m2 / 27.12 Department Location: [facility] kg/m2 [place] Blood Pressure: 134 /82 mmHg Study Type: TRANSTHORACIC ECHO (TTE) COMPLETE Diagnosis/ICD: Personal history of other specified condition-Z87.898; Essential (primary) hypertension-I10; Chest pain, unspecified-R07.9; Dizziness and giddiness-R42; Shortness of breath-R06.02 Indication: Edeema, Family History of CAD, Thoracic Outlet Syndrome, ADD/ADHD CPT Codes: Echo Complete w Full [id number] Study Detail: The following Echo studies were [...] Normal Ranges: RVOT Vmax: 0.74 m/s (0.6-0.9m/s) Shoshana Plascencia MD, [facility] Electronically signed on 11/01/2024 at 10:28:49 AM Final CONCLUSIONS: 1. Left ventricular ejection fraction is normal by visual estimate at 65%. 2. There is no evidence of left ventricular hypertrophy. 3. Normal chamber sizes. 4. No significant valvular heart disease. 5. There is normal right ventricular global systolic function. 6. No comparison study available. Procedure Note Radiology, Radiologist, MD - 11/01/[address], [address] [place] [address] TRANSTHORACIC ECHOCARDIOGRAM REPORT Patient Name: JUAN ANTONIO GOMEZ [place] Physician: Elayne Cordon [facility] Study Date: 10/31/2024 Ordering Provider: Shoshana PLASCENCIA MRN/PID: [id number] Fellow: Nurse: Date of /Age: 1201/09/1990 Dermatologist Managing Partner: Ministerio wolfe RDISMAEL, RVT Gender Assigned at F Additional Staff: : Height: 162.56 cm Admit Date: Weight: 71.67 kg Admission Status: Outpatient BSA / BMI: 1.77 m2 / 27.12 Department Location: [facility] kg/m2 [place] Blood Pressure: 134 /82 mmHg Study Type: TRANSTHORACIC ECHO (TTE) COMPLETE Diagnosis/ICD: Personal history of other specified condition-Z87.898;Essential (primary) hypertension-I10; Chest pain,unspecified-R07.9; Dizziness and giddiness-R42; Shortness of breath-R06.02 Indication: Edeema, Family History of CAD, Thoracic Outlet Syndrome,ADD/ADHD CPT Codes: Echo Complete w Full Doppler-[id number] Study Detail: The following Echo studies were [...] Normal Ranges: RVOT Vmax: 0.74 m/s (0.6-0.9m/s) [id number] King Plascencia MD, [facility] Electronically signed on 11/01/2024 at 10:28:49 AM Final CONCLUSIONS: 1. Left ventricular ejection fraction is normal by visual estimate at65%. 2. There is no evidence of left ventricular hypertrophy. 3. Normal chamber sizes. 4. No significant valvular heart disease. 5. There is normal right ventricular global systolic function. 6. No comparison study available. us [employer] External Data Provider CV ECHO PROCEDURE S Final Result documented in this encounter Visit Diagnoses Not on filedocumented in this encounter Care Teams Casting Associate Relationship Specialty Start Date End Date Davidson Jay MD [address] [place] [address] PCP - General Family Medicine 06/16/22 documented as of this encounter
--- OUTSIDE RECORDS SUMMARY | 2024-11-10 08:33 | XMS_ITS | Encounter Summary ---
Author Organization [facility] Address [address] [place] [address] Care Team Providers Care Wave Solder Offbearer Name Role Phone Davidson Jay MD Primary Care Provider [phone] Encounter Details Date Type Department Care Team ([facility] Contact Info) Description 11/10/2022 Abstract [facility] Kendra Escobedo 112 [facility] 110 [place] [phone] Davidson Jay MD 112 [facility] 110 [place] [address] Social History Tobacco Use Types Packs/Day Years [...] Upcoming Encounters Date Type Department Care Team ([facility] Contact Info) Description 12/18/2024 11:00 AM EST [facility] 112 [facility] 110 [place] [phone] Davidson Jay MD 112 [facility] 110 [place] [address] documented as of this encounter Visit Diagnoses Not on filedocumented in this encounter Care Teams Wave Solder Offbearer Relationship Specialty Start Date End Date Davidson Jay MD 112 [place] [address] PCP - General Family Medicine 06/16/22 documented as of this encounter
--- OUTSIDE RECORDS SUMMARY | 2024-11-10 08:33 | XMS_ITS | Encounter Summary ---
Author Organization [facility] Address [address] [facility] [place] [address] Care Team Providers Care Cloud Engagement Partner Name Role Phone Davidson Jay MD Primary Care Provider [phone] Encounter Details Date Type Department Care Team ([facility] Contact Info) Description 09/19/2024 Results Follow-Up [facility] Kendra Riojas 112 [facility] 110 [place] [phone] Evonne Hunt PA 112 [facility] 110 [place] [address] URINARY TRACT INFECTION (HTRX) Social History Tobacco Use Types Packs/Day Years [...] Encounters Date Type Department Care Team (Late Contact Info) Description 12/18/2024 11:00 AM EST [facility] [address] [facility] 110 [place] [phone] Davidson Jay MD 112 [facility] 110 [place] [address] documented as of this encounter Visit Diagnoses Not on filedocumented in this encounter Care Teams Cloud Engagement Partner Relationship Specialty Start Date End Date Davidson Jay MD [address] [address] PCP - General Family Medicine 06/16/22 documented as of this encounter
--- OUTSIDE RECORDS SUMMARY | 2024-11-10 08:33 | XMS_ITS | Clinical Summary ---
Author Organization [facility] Address [address] [place] [address] Phone Care Team Providers Care Reshipping Clerk Name Role Phone Davidson Jay MD Primary Care Provider [phone] Allergies Active Allergy Reactions Criticality Noted Date Comments Magnesium Sulfate Anaphylaxis High 04/22/2014 Medications labetalol (Normodyne) 100 mg tablet Take 1 tablet (100 mg) by mouth twice a day. 07/20/2024 Active furosemide (Lasix) 20 mg tablet Take 1 tablet (20 mg) by mouth once daily. 07/31/2024 Active atomoxetine (Strattera) 18 mg capsule Take 1 capsule (18 mg) by mouth once daily. 07/20/2024 Active potassium gluconate 600 mg (99 mg) tablet Take 1 tablet by mouth once daily. Active Active Problems Problem Noted Date Diagnosed Date BMI 27.0-27.9,adult 08/10/2024 Never smoked tobacco 08/10/2024 Thoracic outlet syndrome 08/10/2024 ADD (attention deficit disorder) 08/10/2024 Encounter to establish care 08/10/2024 History of palpitations 08/10/2024 Essential (primary) hypertension 08/10/2024 Chest pain, unspecified 08/10/2024 Dizziness 08/10/2024 Hx of migraines 08/10/2024 Screening for cholesterol level 08/10/2024 ADHD 08/10/2024 Acid reflux 08/10/2024 IBS (irritable bowel syndrome) 08/10/2024 Upper extremity weakness 08/10/2024 Intermittent claudication 08/10/2024 Left arm weakness 08/10/2024 SOB (shortness of breath) on exertion 08/10/2024 Anxiety disorder, unspecified 11/05/2022 Encounters Date Type Department Care Team Description 10/31/2024 9:34 AM EDT - 10/31/2024 11:59 PM EDT Hospital Encounter [place] [id number] [place] [phone] History of palpitations; Essential (primary) hypertension; Chest pain, unspecified type; Dizziness; SOB (shortness of breath) on exertion Discharge Disposition: Home 10/31/2024 Travel 08/24/2024 Orders Only [facility] [address] [place] [address] Eryn Plascencia MD 08/16/2024 3:00 PM EDT Ancillary Procedure [address] [phone] History of palpitations 08/16/2024 2:21 PM EDT - 08/16/2024 11:59 PM EDT Hospital Encounter [address] [phone] History of palpitations; Chest pain, unspecified type; Dizziness Discharge Disposition: Home 08/16/2024 Travel 08/10/2024 11:00 AM EDT Office Visit [address] [phone] Eryn Plascencia MD Encounter to establish care; History of palpitations; Essential (primary) hypertension; Chest pain, unspecified type; Dizziness; Upper extremity weakness; Hx of migraines; Attention deficit hyperactivity disorder (ADHD), unspecified ADHD type; Gastroesophageal reflux disease, unspecified whether esophagitis present; Irritable bowel syndrome, unspecified type; Screening for cholesterol level; Anxiety disorder, unspecified type; Thoracic outlet syndrome; Never smoked tobacco; BMI 27.0-27.9,adult; Intermittent claudication; SOB (shortness of breath) on exertion 08/10/2024 Travel from Last 3 Months Immunizations Immunization Administration Dates Next Due Flu vaccine (IIV4), preservative free *Check age /dose* 11/23/2017 Influenza, injectable, MDCK, quadrivalent 2018 Influenza, intradermal, quadrivalent, preservati ve free 03/18/2017 Family History Medical History Relation Name Comments Heart disease Brother No Known Problems Father COPD Mother htn Mother Hypotension Sister Relation Name Status Comments Brother Father Mother Sister Social History Tobacco Use Types Packs/Day Years Used Date Smoking Tobacco: Never Smokeless Tobacco: Never Tobacco Cessation:Counseling Given: Not Answered Alcohol Use Standard Drinks/Week Comments Yes 0 [...] Pressure 134/82 10/31/2024 9:43 AM EDT Pulse 92 08/16/2024 2:31 PM EDT Temperature - - Respiratory Rate - - Oxygen Saturation - - Inhaled Oxygen Concentration - - Weight 71.7 kg (158 lb) 10/31/2024 9:43 AM EDT Height 162.6 cm (5' 4 ) 10/31/2024 9:43 AM EDT Body Mass Index 27.12 10/31/2024 9:43 AM EDT Plan of Treatment Upcoming Encounters Date Type Department Care Team (Late st Contact Info) Description 11/16/2024 9:15 AM EDT Office Visit [facility] [address] [facility] [address] [place] [address] Eryn Plascencia MD [address] [facility] [address] [place] [address] Health Maintenance Due Date Last Done Comments HIV Screening 1991 Lipid Panel 1991 Yearly Adult Physical 1991 MMR Vaccines (1 of 1 - Standard series) 01/10/1992 Hepatitis C Screening 2009 Hepatitis B Vaccines (1 of 3 - 19+ 3-dose series) 2010 Cervical Cancer Screening 01/10/2012 HPV/Cotest 01/10/2012 Pap Smear 01/10/2012 DTaP/Tdap/Td Vaccines (1 - Tdap) 2013 HPV Vaccines (1 - 3-dose standard series) 2018 COVID-19 Vaccine ( - 2023-2 5 season) 2024 Influenza Vaccine (#1) 2024 9, 11/23/2017, 03/18/2017 Zoster Vaccines (1 of 2) 2041 HIB Vaccines Aged Out No longer eligi ble based on patient's age to complete this topic Hepatitis A Vaccines Aged Out No long er eligible based on patient's age to complete this topic IPV Vaccines Aged Out No longer eligi ble based on patient's age to complete this topic Meningococcal Vaccine Aged Out No maliha ca eligible based on patient's age to complete this topic Pneumococcal Vaccine: Pediatrics and At-Risk Adult Patients Aged Out No longer eligible b ased on patient's age to complete this topic Rotavirus Vaccines Aged Out No longer eligible based on patient's age to complete this topic Procedures Procedure Name Priority Date/Time Associated Diagnosis Comments TRANSTHORACIC ECHO (TTE) COMPLETE Routine 10/31/2024 10:24 AM EDT History of palpitations Essential (primary) hypertension Chest pain, unspecified type Dizziness SOB (shortness of breath) on exertion CARDIAC EVENT MONITOR CONTINUOUS UP TO 30 DAYS - HOOK-UP, PHYSICIAN READ Routine 08/28/2024 1:27 PM EDT History of palpitations CT ANGIO CHEST W AND WO IV CONTRAST 08/24/2024 10:46 AM EDT STRESS TEST ONLY, EXERCISE Routine 08/16/2024 3:01 PM EDT History of palpitations Chest pain, unspecified type Dizziness ECG 12-LEAD Routine 08/10/2024 12:29 PM EDT Encounter to establish care from Last 3 Months Results * TRANSTHORACIC ECHO (TTE) COMPLETE (10/31/2024 [...] Narrative [facility] - 11/01/2024 10:28 AM EDT [address], [address], [place] [address] TRANSTHORACIC ECHOCARDIOGRAM REPORT Patient Name: JUAN ANTONIO GOMEZ Reading Physician: [id number] Eryn Plascencia MD, [facility] Study Date: 10/31/2024 Ordering Provider: [id number] ERYN PLASCENCIA MRN/PID: [id number] Fellow: Nurse: Date of /Age: 1201/09/1990 Audiovisual Equipment Operator: Kari wolfe [facility], T Gender Assigned at F Additional Staff: : Height: 162.56 cm Admit Date: Weight: 71.67 kg Admission Status: Outpatient BSA / BMI: 1.77 m2 / 27.12 Department Location: [facility] kg/m2 [place] Blood Pressure: 134 /82 mmHg Study Type: TRANSTHORACIC ECHO (TTE) COMPLETE Diagnosis/ICD: Personal history of other specified condition-Z87.898; Essential (primary) hypertension-I10; Chest pain, unspecified-R07.9; Dizziness and giddiness-R42; Shortness of breath-R06.02 Indication: Edeema, Family History of CAD, Thoracic Outlet Syndrome, ADD/ADHD CPT Codes: Echo Complete w Full Doppler-[id number] Study Detail: The following Echo studies were [...] Vmax: 0.74 m/s (0.6-0.9m/s) Shoshana Plascencia MD, [facility] Electronically signed on 11/01/2024 at 10:28:49 AM Final Procedure Note Eryn Plascencia MD - 11/01/[address], Suite [facility], [place] [address] TRANSTHORACIC ECHOCARDIOGRAM REPORT Patient Name: JUAN ANTONIO GOMEZ Reading Physician: Elayne Cordon FACC Study Date: 10/31/2024 Ordering Provider: Shoshana PLASCENCIA MRN/PID: [id number] Fellow: Nurse: Date of /Age: 1201/09/1990 Audiovisual Equipment Operator: Ministerio wolfe RDISMAEL, RVT Gender Assigned at F Additional Staff: : Height: 162.56 cm Admit Date: Weight: 71.67 kg Admission Status: Outpatient BSA / BMI: 1.77 m2 / 27.12 Department Location: [facility] kg/m2 [place] Blood Pressure: 134 /82 mmHg Study Type: TRANSTHORACIC ECHO (TTE) COMPLETE Diagnosis/ICD: Personal history of other specified condition-Z87.898;Essential (primary) hypertension-I10; Chest pain,unspecified-R07.9; Dizziness and giddiness-R42; Shortness of breath-R06.02 Indication: Edeema, Family History of CAD, Thoracic Outlet Syndrome,ADD/ADHD CPT Codes: Echo Complete w Full Doppler-[id number] Study Detail: The following Echo studies were [...] Normal Ranges: RVOT Vmax: 0.74 m/s (0.6-0.9m/s) [id number] Eryn Plascencia MD, [facility] Electronically signed on 11/01/2024 at 10:28:49 AM Final IMPRESSION: CONCLUSIONS: 1. Left ventricular ejection fraction is normal by visual estimate at65%. 2. There is no evidence of left ventricular hypertrophy. 3. Normal chamber sizes. 4. No significant valvular heart disease. 5. There is normal right ventricular global systolic function. 6. No comparison study available. Eryn Plascencia MD CV ECHO PROCEDURES Final Result Performing Organization Address [facility]/ZIP Co de Phone Number SYNGO * CARDIAC EVENT MONITOR CONTINUOUS UP TO 30 DAYS - HOOK-UP, PHYSICIAN READ (08/28/2024 1:27 PM EDT) Impressions [facility] - 09/01/2024 10:46 AM EDT Abnormal 7-day cardiac event monitor. Predominant sinus rhythm. Sinus arrhythmia. Episodes of PSVT, symptomatic No ventricular ectopy. No high-grade AV blocks or pauses. COMMENTS: Clinical correlation is advised. Eryn Plascencia MD [facility] Cardiology Narrative [facility] - 09/01/2024 10:46 AM EDT PROCEDURE: 7-day cardiac event monitor DATE: 08/16/2024 INDICATION: Palpitations TECHNIQUE / RESULTS: 7-day cardiac event monitor was performed. 20 patient triggered events were noted. Heart rates ranged from 78 to 160 bpm. Predominant rhythm was sinus rhythm. All tracings were sinus rhythm. Occasional sinus arrhythmia. Episodes of PSVT. No ventricular ectopy. No high-grade AV blocks or pauses. Symptoms of palpitations at times of SVT. Eryn Plascencia MD [facility] Final Result Performing Organization Address City/[facility] Co de Phone Number CPACS * CT angio chest w and wo IV contrast (08/24/2024 10:46 AM EDT) Anatomical Region Laterality Modality Thoracic, Chest Computed Tomogra phy 08/24/2024 10:4 6 AM EDT Narrative 08/24/2024 11:04 AM EDT [facility] [place] [address] CT Scan Report Signed Patient: Juan Atnonio Gomez MR#: [id number] [birth year] : 1990 Acct:[id number] Age/Sex: 34 / F ADM Date: 08/24/24 Loc: CT Room: Type: [facility] Attending Dr: Eryn Plascencia MD Copies to: Eryn Plascencia Ordering Provider: Eryn Plascencia Date of Service: 08/24/24 CT/CT angio neck: Z87.898, I10,R07.9,R29.898,I73.9, RO6 ([id number]) CT/CT angio chest: Z87.898, I10,R07.9,R29.898,I73.9, RO6 ([id number]) CT/CT angio UE LT: Z87.898, I10,R07.9,R29.898,I73.9, RO6 CT angiogram chest/neck/left upper extremity INDICATION: Thoracic outlet syndrome, chest palpitations, high blood pressure comparison: None TECHNIQUE: CT angiogram images through the chest/neck/left upper extremity were performed with 3-D reconstructions. Imaging of the left upper extremity was performed with the arm above her head. Imaging of the neck and chest was performed with her arm at her side. Evaluation degree of ICA narrowing was performed utilizing NASCET criteria. This CT exam was performed using one or more following dose reduction techniques: Automated exposure control, adjustment of the mA and/or kV according to patient size, or use of iterative reconstruction technique. Findings: Thoracic aorta is normal in caliber without dissection flap. Bovine configuration of the common carotid arteries. Common carotid arteries, carotid bifurcations and cervical ICAs are patent throughout their the course. Vertebral arteries are codominant and patent throughout the course. Heart is normal in size. No pericardial effusion. No suspicious adenopathy. Lungs are clear. No central pulmonary emboli. Anterior neck soft tissues unremarkable. Mild straightening normal cervical lordosis likely positional. Mild degenerative changes C4-C5 with intervertebral space narrowing narrowing and uncovertebral spurring. No cervical ribs. CTA neck/chest demonstrates symmetric caliber of the subclavian and axillary arteries bilaterally. Upon placement of the arm above her head, there is focal compression of the subclavian artery as because axillary superiorly from the clavicle and inferiorly by the first rib. Vessel caliber the on the axial images roughly 1 mm, distally the vessel measures 4.4 mm on the axial images. The remainder of the left upper extremity vasculature is unremarkable. Left upper extremity vasculature as related to the pulmonary arch with predominant supply arising from the ulnar artery. Additional high-grade narrowing involving the visualized vasculature. CT/CT angio neck IMPRESSION: Focal compression and mass effect on the left subclavian/axillary artery due to mass effect from the clavicle and first rib. Remainder of the vasculature within the neck and left upper extremity and chest is unremarkable. Impression dictated by: Carlos Cao M.D. 08/24/2024 11:01 AM Dictation Location: [place] [address] Transcribed By: [facility] 08/24/24 1101 Dictated By: Carlos Cao MD 08/24/24 1046 Signed By: <Electronically signed by Carlos Cao MD in OV> 08/24/24 1101 Eryn Plascencia MD IMG CT PROCEDURES Final R esult * STRESS TEST ONLY, EXERCISE (08/16/2024 3:01 PM EDT) 08/16/2024 3:09 PM EDT Narrative [facility] - 08/17/2024 5:01 PM EDT [address], Suite [facility], [place] [address] Exercise Stress Test Patient Name: JUAN ANTONIO GOMEZ Ordering Provider: [id number] ERYN PLASCENCIA Study Date: 08/16/2024 Reading Physician: [id number] Vickie Harris MD MRN/PID: [id number] Supervising Physician: [id number] Vickie Harris MD Fellow: Date of /Age: 1201/09/1990 / 34 years Fellow: Gender: F Nurse: Onur Santos RN Admission Status: Audiovisual Equipment Operator: SHERLY Height: 162.56 cm Technologist: Weight: 71.67 kg Additional Staff: BSA: 1.77 m2 BMI: 27.12 kg/m2 Patient Location: Study Type: STRESS TEST ONLY Diagnosis/ICD: Chest pain, unspecified-R07.9 Indication: Chest Pain CPT Codes: Stress Test Interpretation-35391; Stress Test Supervision-[id number] Falls Risk: Low: Patient has low risk [...] METS. 7. Adequate level of stress achieved. [id number] Vickie Harris MD Electronically signed on 08/17/2024 at 5:01:43 PM Final Procedure Note Vickie Harris MD - 08/17/2024 [facility] [address] [place] [address], [address], [place] [address] Exercise Stress Test Patient Name: JUAN ANTONIO GOMEZ Ordering Provider: [id number] ERYN TEMO Study Date: 08/16/2024 Reading Physician: [id number] Julio MRN/PID: [id number] Supervising Physician: [id number] Julio Fellow: Date of /Age: 1201/09/1990 / 34 years Fellow: Gender: F Nurse: Cici BAH Admission Status: Audiovisual Equipment Operator: SHERLY Height: 162.56 cm Technologist: Weight: 71.67 kg Additional Staff: BSA: 1.77 m2 BMI: 27.12 kg/m2 Patient Location: Study Type: STRESS TEST ONLY Diagnosis/ICD: Chest pain, unspecified-R07.9 Indication: Chest Pain CPT Codes: Stress Test Interpretation-99110; Stress TestSupervision-85366 Falls Risk: Low: Patient has low risk [...] METS. 7. Adequate level of stress achieved. [id number] Vickie Harris MD Electronically signed on 08/17/2024 at 5:01:43 PM Final Eryn Plascencia MD CV STRESS PROCEDURES Elke l Result SYN[facility] * ECG 12 Lead (08/10/2024 12:29 PM EDT) Narrative [facility] - 08/10/2024 12:29 PM EDT Sinus rhythm, rate 84. Eryn Plascencia MD ECG ORDERABLES Final Res ult Performing Organization Address [facility] Co de Phone Number CPACS from Last 3 Months Insurance GENERIC COMMERCIAL GENERIC COMMERCIAL Care Teams Reshipping Clerk Relationship Specialty Start Date End Date Davidson Jay MD [address] [facility] [address] [place] [address] PCP - General Family Medicine 08/02/24
--- OUTSIDE RECORDS SUMMARY | 2024-11-10 08:33 | XMS_ITS | Encounter Summary ---
Author Organization [facility] Address [address] [place] [address] Phone Care Team Providers Care Planimeter Operator Name Role Phone Davidson Jay MD Primary Care Provider [phone] Encounter Details Date Type Department Care Team (Latest Contact Info) Description 10/31/2024 Travel Social History Tobacco Use Types Packs/Day Years [...] on file documented as of this encounter Functional Status * BP Answer Date of Assessment Author 134/82 10/31/2024 9:43 AM EDT Chirag Salcedo, RVT * Communicable Disease Screening Question Answer Date of Assessment Author Do you have any of the follo wing new or worsening symptoms? None of these 10/31/2024 9:34 AM EDT Brianna Ritter documented as of this encounter Plan of Treatment Upcoming Encounters Date Type Department Care Team (Late st Contact Info) Description 11/16/2024 9:15 AM EDT Office Visit [facility] [address] [facility] [address] [place] [address] King Ruano MD [address] [facility] [address] [place] [address] documented as of this encounter Visit Diagnoses Not on filedocumented in this encounter Additional Health Concerns Assessment Noted Time A fall risk assessment has been complete d for the patient 08/10/2024 11:03 AM EDT documented as of this encounter Care Teams Planimeter Operator Relationship Specialty Start Date End Date Davidson Jay MD [address] [address] PCP - General Family Medicine 08/02/24 documented as of this encounter
--- OUTSIDE RECORDS SUMMARY | 2024-11-10 08:33 | XMS_ITS | Encounter Summary ---
Author Organization [facility] Address [address] [place] [address] Care Team Providers Care Engraver Pantograph Name Role Phone Davidson Jay MD Primary Care Provider [phone] Encounter Details Date Type Department Care Team ([facility] Contact Info) Description 07/14/2023 Abstract [facility] Escobedo 112 [facility] 110 [place] [phone] [place] Jay MD [address] [facility] 110 [place] [address] Social History Tobacco Use Types Packs/Day Years [...] 11:00 AM EST [facility] 112 [facility] 110 [place] [phone] Davidson Jay MD [address] [facility] 110 [place] [address] documented as of this encounter Visit Diagnoses Not on filedocumented in this encounter Care Teams Engraver Pantograph Relationship Specialty Start Date End Date Davidson Jay MD 112 [place] [address] PCP - General Family Medicine 06/16/22 documented as of this encounter
--- OUTSIDE RECORDS SUMMARY | 2024-11-10 08:33 | XMS_ITS | Encounter Summary ---
Author Organization [facility] Address [address] [place] [address] Care Team Providers Care Warehouse Clerk Name Role Phone Davidson Jay MD Primary Care Provider [phone] Encounter Details Date Type Department Care Team ([facility] Contact Info) Description 11/09/2022 Orders Only [facility] Riojas [address] [facility] 110 [place] [address] A, Unknown Practice [address] [place], [place] [phone] Social History Tobacco Use Types Packs/Day Years [...] 11:00 AM EST Office Visit [facility] Riojase [address] [facility] [address] [place] [address] Davidson Jay MD [address] [facility] 110 [place], [place] [phone] documented as of this encounter Visit Diagnoses Not on filedocumented in this encounter Care Teams Warehouse Clerk Relationship Specialty Start Date End Date Davidson Jay MD [address] [place] [address] 110 [place] [address] PCP - General Family Medicine 06/16/22 documented as of this encounter
--- OUTSIDE RECORDS SUMMARY | 2024-11-10 08:34 | XMS_ITS | Encounter Summary ---
Author Organization [facility] Address [address] [place] [address] Care Team Providers Care Net Technical Architect Name Role Phone Davidson Jay MD Primary Care Provider [phone] Reason for Visit * Reason Comments Med Change Request Encounter Details Date Type Department Care Team ([facility] Contact Info) Description 08/12/2024 Refill [facility] [address] [facility] 110 [place] [phone] [place] Jay MD [address] [facility] 110 [place] [address] Primary hypertension ; Attention deficit hyperactivity disorder, predominantly inattentive type Social History Tobacco Use Types Packs/Day Years [...] AM EDT documented as of this encounter Functional Status * Over the past 2 weeks, how often have you been bothered by any of the following problems? Question Answer Date of Assessment Author Little interest or pleasure in doing things Several days 08/14/2024 10:03 AM EDT NAVIN SANCHEZ Feeling down, depressed, or hopeless Several days 08/14/2024 10:03 AM EDT NAVIN SANCHEZ Patient Health Questionnaire -2 Score 2 08/14/2024 10:03 AM EDT NAVIN SANCHEZ * If you checked off any problems on this questionnaire so far, Question Answer Date of Assessment Author How difficult have these problems made it for you to do your work, take care of things at home, or get along with other people? Somewhat difficult 08/14/2024 10:03 AM EDT NAVIN SANCHEZ documented as of this encounter Miscellaneous Notes * Telephone Encounter - JAY Olivares - 08/14/2024 8:38 AM EDT Labetolol and Strattera sent. documented in this encounter Plan of Treatment Upcoming Encounters Date Type Department Care Team (Late st Contact Info) Description 12/18/2024 11:00 AM EST Office Visit [facility] [address] [facility] 110 [place] [address] [place] MD [address] [facility] 110 [place] [address] documented as of this encounter Visit Diagnoses Diagnosis Primary hypertension Unspecified essential hypertension Attention deficit hyperactivity disorder, predominantly inattentive type documented in this encounter Care Teams Net Technical Architect Relationship Specialty Start Date End Date Davidson Jay MD [address] [facility] [address] [place] [address] PCP - General Family Medicine 06/16/22 documented as of this encounter
[2024-11-10 08:53] LABS: Hematocrit 41.1 % (36.0-48.0); Hemoglobin 13.9 g/dL (12.0-16.0); Immature Granulocytes Abs Auto 0.01 10^3/uL (0.00-0.03); Immature Granulocytes Pct Auto 0.2 % (0.0-0.5); Lymphocytes Absolute Auto 1.7 10^3/uL (1.2-3.8); Mean Corpuscular HGB Conc 33.8 g/dL (29.9-35.2); Mean Corpuscular Hemoglobin 32.0 pg (26.7-34.0); Mean Corpuscular Volume 94.5 fL (81.0-99.0); Platelet Count 270 10^3/uL (150-450); Red Blood Count 4.35 10^6/uL (4.20-5.40); White Blood Count 5.4 10^3/uL (4.0-11.0)
[2024-11-10 09:24] LABS: Alanine Aminotransferase 26 U/L (14-59); Albumin Globulin Ratio 1.1; Albumin Level 3.8 g/dL (3.4-5.0); Alkaline Phosphatase 60 U/L (46-116); Anion Gap 9.5; Aspartate Amino Transferase 12 U/L (15-37); Blood Urea Nitrogen 12.0 mg/dL (7.0-18.0); Calcium 8.9 mg/dL (8.5-10.1); Carbon Dioxide 29.7 mmol/L (21.0-32.0); Chloride 104 mmol/L (98-107); Cholesterol 162 mg/dL (<=200); Estimated GFR (African America >60 (>=60 mL/min/1.73m^2); Estimated GFR (Non-African Ame >60 (>=60 mL/min/1.73m^2); Globulin 3.5 g/dL; Glucose 96 mg/dL (74-106); HDL Cholesterol 42 mg/dL (40-60); Magnesium 2.1 mg/dL (1.8-2.4); Potassium 4.2 mmol/L (3.5-5.1); Sodium 139 mmol/L (136-145); Thyroid Stimulating Hormone 1.561 uIU/mL (0.358-3.740); Total Protein 7.3 g/dL (6.4-8.2); Triglycerides 90 mg/dL (<=150); VLDL CHOLESTEROL 18.0 mg/dL
== END 2024-11-10 08:27 | disposition home or self-care (01) ==
PROVIDERS: PCP Family Medicine; Visit Provider Internal Medicine Cardiovascular Disease
DX: I10 Essential (primary) hypertension (principal); Z76.89 Persons encountering health services in other specified circumstances; Z87.898 Personal history of other specified conditions
CPT/HCPCS: 36415; 80053; 80061; 83735; 84443; 85025